=== PATIENT | male | born 1975 | race Caucasian/White ===

== ENCOUNTER → 2018-12-26 | Outpatient (CLI) | payer SELFPAY ==
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
== END ==
LOC: RAD 08:58
PROVIDERS: ATTEND Internal Medicine
DX: M51.17 Intervertebral disc disorders with radiculopathy, lumbosacral region (principal); M47.27 Other spondylosis with radiculopathy, lumbosacral region; M48.061 Spinal stenosis, lumbar region without neurogenic claudication; Z87.828 Personal history of other (healed) physical injury and trauma
CPT/HCPCS: 72148

== ENCOUNTER 2020-11-19 18:25 | Emergency (ER) | payer SELFPAY ==
[~2020-11-19] VITALS: Ht 167 cm; Wt 110.0 kg
[2020-11-19] MEDS ORDERED: ONDANSETRON 4 MG (ZOFRAN) ORAL DISSOLVE TAB PO STA (18:42)
[2020-11-19] MEDS ORDERED: predniSONE 20 MG TAB PO ONE (18:45)
[2020-11-19] MEDS ORDERED: RT-ALBUTEROL/IPRATROPIUM 3 ML (DUONEB) VIAL INH ONE (18:45)
--- NOTE | 2020-11-19 18:54 | ED General ---
General Chief Complaint: General Problems/Pain Stated Complaint: COUGH; VOMITING Nursing Triage Note: PT REPORTS HE HAS BEEN COUGHING FOR THE PAST THREE DAYS AND HIS RIB ON THE RIGHT SIDE HURTS WHEN HE COUGHS. HE REPORTS TODAY HE HAS COUGHED TO THE POINT OF VOMITING BUT DENIES NAUSEA. PT SMOKES 3-4 PACKS OF SMOKES A DAY. Nursing Sepsis Screen: No Definite Risk History of Present Illness Date Seen by Provider: November 19, 2020 Time Seen by Provider: 18:51 Initial Comments Patient presenting to emergency department for evaluation of cough with posttussive emesis that has been going on for the past 2 days. Patient says the cough is productive of a yellowish sputum. He says that he does not feel short of breath but he has intermittent episodes of intense coughing spells where he cannot stop coughing and then he starts vomiting nonbloody nonbilious material. He says he does not feel nauseated in between coughing episodes. He says that when he is coughing he feels pain on both sides of his lateral ribs but he has no pain in between coughing episodes. He denies any abdominal pain chest pain fevers chills diarrhea or other complaints. He says that he usually smokes 4 packs of cigarettes a day but over the past several days when he has not been feeling good he is only been smoking 2 packs/day. He denies being diagnosed with COPD but he says he has had a frequent diagnosis of bronchitis. He denies having any heart disease however he says that he takes medications for blood pressure but not diabetes or high cholesterol. He is in no obvious distress with normal vital signs. Allergies and Home Medications Allergies Coded Allergies: No Known Drug Allergies (Unverified , 11/19/20) Patient Home Medication List Home Medication List Reviewed: Yes Review of Systems Review of Systems Constitutional: no symptoms reported EENTM: no symptoms reported Respiratory: cough Cardiovascular: no symptoms reported Gastrointestinal: vomiting Genitourinary: no symptoms reported Musculoskeletal: no symptoms reported Skin: no symptoms reported Psychiatric/Neurological: No Symptoms Reported All Other Systems Reviewed Negative Unless Noted: Yes Past Snollzc-Hmfllq-Tnsejj Hx Patient Social History Alcohol Use: Denies Use Smoking Status: Current Everyday Smoker Type Used: Cigarettes 2nd Hand Smoke Exposure: Yes Recent Infectious Disease Expo: No Recent Hopitalizations: No Seasonal Allergies Seasonal Allergies: Yes Past Medical History Surgeries: No Respiratory: No Cardiac: Yes Hypertension Neurological: No Genitourinary: No Gastrointestinal: Yes Gastroesophageal Reflux Musculoskeletal: No Endocrine: No HEENT: No Cancer: No Psychosocial: No Integumentary: No Blood Disorders: No Physical Exam Vital Signs Vital Signs - First Documented 11/19/20 18:30 Temp 35.6 Pulse 100 Resp 20 B/P (MAP) 128/90 (103) Pulse Ox 94 O2 Delivery Room Air Capillary Refill : Less Than 3 Seconds Height, Weight, BMI Height: '" Weight: lbs. oz. kg; 39.00 BMI Method: General Appearance: No Apparent Distress, WD/WN HEENT: PERRL/EOMI Neck: Supple Respiratory: No Respiratory Distress, Other (Decreased aeration of lungs with expiratory wheezing auscultated) Cardiovascular: Regular Rate, Rhythm, No Edema, No Murmur, Normal Peripheral Pulses Gastrointestinal: Non Tender, Soft Extremity: Normal Capillary Refill Neurologic/Psychiatric: Alert, Oriented x3 Skin: Warm/Dry Progress/Results/Core Measures Suspected Sepsis Recent Fever Within 48 Hours: No Infection Criteria Present: None New/Unexplained Altered Menta: No Sepsis Screen: No Definite Risk SIRS Temperature: Pulse: 100 Respiratory Rate: 20 Blood Pressure 128 /90 Mean: 103 Results/Orders My Orders Orders - MOHAN HUTCHISON DO Albuterol/Ipra Inhalation Soln (Duoneb I (11/19/20 18:45) Svn Small Volume Nebulizer (11/19/20 18:42) Prednisone Tablet (Deltasone Tablet) (11/19/20 18:45) Ondansetron Oral Dissolve Tab (Zofran (11/19/20 18:42) Chest Pa/Lat (2 View) (11/19/20 18:42) Medications Given in ED Current Medications Medications Dose Ordered Sig/Amara Route Start Time Stop Time Status Last Admin Dose Admin Albuterol/ Ipratropium 3 ml ONCE ONCE INH 11/19/20 18:45 11/19/20 18:46 DC 11/19/20 18:46 3 ML Prednisone 50 mg ONCE ONCE PO 11/19/20 18:45 11/19/20 18:46 DC 11/19/20 18:46 50 MG Vital Signs/I&O 11/19/20 18:30 Temp 35.6 Pulse 100 Resp 20 B/P (MAP) 128/90 (103) Pulse Ox 94 O2 Delivery Room Air Capillary Refill : Less Than 3 Seconds Blood Pressure Mean: 103 Progress Note : Progress Note Patient is presenting with symptoms of frequent bronchospasm with posttussive emesis. I will check chest x-ray treat symptoms and reassess. Chest x-ray negative and patient feels better here and he continues to have normal vital signs. I will treat him supportively as an outpatient for acute bronchitis with Zithromax prednisone told to use his inhaler every 4 hours and will provide Zofran for nausea and vomiting as needed. patient told to follow-up with primary care provider within 2 to 3 days to ensure improvement and come b ack to the ED sooner with worsening pain shortness of breath or other general concerns. Patient aware and agreeable with plan and verbalized understanding of the above instructions. Departure Impression Primary Impression: Bronchospasm Additional Impression: Post-tussive emesis Disposition: HOME, SELF-CARE Condition: Stable Departure-Patient Inst. Referrals: MOHAN OLIVER MD (PCP/Family) Primary Care Physician Patient Instructions: Acute Bronchitis, Adult (DC) Add. Discharge Instructions: Stop smoking. Use your albuterol inhaler every 4 hours. All discharge instructions reviewed with patient and/or family. Voiced understanding. Scripts Azithromycin (Zithromax) 250 Mg Tablet 250 MG PO UD, #6 TAB TAKE 2 TABLETS TODAY, THEN TAKE 1 TABLET DAILY FOR 4 MORE DAYS Prov: MOHAN HUTCHISON DO 11/19/20 Ondansetron (Ondansetron Odt) 4 Mg Tab.rapdis 4 MG PO Q6H PRN for NAUSEA/VOMITING-1ST LINE, #14 TAB Prov: MOHAN HUTCHISON DO 11/19/20 Prednisone (Prednisone) 20 Mg Tab 40 MG PO DAILY, #8 TAB 0 Refills Prov: MOHAN HUTCHISON DO 11/19/20 MOHAN HUTCHISON DO November 19, 2020 18:54
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
[2020-11-19] MEDS ORDERED: ONDA4TAB11 PO (19:07)
[2020-11-19] MEDS ORDERED: PRD20T PO (19:07)
[2020-11-19] MEDS ORDERED: AZIT250T PO (19:09)
[2020-11-19 19:13] VITALS: BP 128/90
== END 2020-11-19 19:14 | disposition home or self-care (01) ==
LOC: EDUNIT# 18:25 → ER FS 18:27
DX: J98.01 Acute bronchospasm (principal); R11.10 Vomiting, unspecified; I10 Essential (primary) hypertension; F17.210 Nicotine dependence, cigarettes, uncomplicated
CPT/HCPCS: 71046